=== PATIENT | male | born 1990 | race Caucasian/White ===

== ENCOUNTER 2018-09-12 12:48 | Emergency (ER) | payer MEDICAID, SELFPAY ==
[2018-09-11 13:34] VITALS: BMI 24.2
[2018-09-12 12:49] VITALS: BP 152/107; PULSE 102; RESP 18; TEMP 37.1; O2SAT 98; BMI 25.0
--- NOTE | 2018-09-12 13:00 | RAD_ITS ---
STUDY: X-RAY - LEFT KNEE REASON FOR EXAM: Male, 27 years old. Pain and swelling following a fall. TECHNIQUE: 2 view(s) of the knee. COMPARISON: None. FINDINGS: Normal visualized distal femur. There is a comminuted depressed fracture of the lateral tibial plateau. Normal proximal tibiofibular articulation. Normal medial femorotibial compartment. Normal lateral femorotibial compartment. Normal patellofemoral articulation. Moderate joint effusion with a fat fluid level. RAD/Knee 1 or 2 Views IMPRESSION: Comminuted depressed lateral tibial plateau fracture with joint effusion. Electronically Signed: Michael Solomon, at 13:35 EDT , Service support ,
--- NOTE | 2018-09-12 13:03 | ED.VIS.GEN ---
History of Present Illness Chief Complaint: Lower Extremity Injury Detail of Chief Complaint: Left knee pain status post fall Informant: Patient, Family Onset: Today Quality: Throbbing Location: Left knee Current Severity: Mild Maximum Severity: Moderate Narrative: Patient presents with a fall down approximately 3 stairs. He complains of pain to the left knee only. He denies any other injury. He had limited ability to weight-bear. He was brought in by EMS. - Past Medical History (1) GERD (gastroesophageal reflux disease) Status: Chronic (2) Frequent headaches Status: Acute Past Medical History - Allergies and Home Meds Allergies/Adverse Reactions: Allergies Bleach (Sodium Hypochlorite) Allergy (Intermediate, Verified 09/12/18 12:52) rash Primary Care Physician: Tramaine Mireles MD [Primary Care Provider] - Prior records reviewed: Yes Past Medical History: - - Reviewed Lives: With Family Smoking Status: Current some day smoker Review of Systems All systems negative except as indicated General: Denies: Chills, Fever Eyes: Denies: Visual changes - left, Visual changes - right ENT: Denies: Bilateral ear pain Cardiovascular: Denies: Chest pain, Palpitations Respiratory: Denies: Dyspnea, Cough Gastrointestinal: Denies: Abdominal pain, Nausea, Vomiting Musculoskeletal: Reports: Arthralgias. Denies: Neck pain, Back pain Neurological: Denies: Headache Hematologic: Denies: Easy bruising Allergy: Denies: Uticaria Physical Exam Vital Signs/Narrative: Vital Signs Temp Pulse Resp BP Pulse Ox 09/12/18 12:49 98.7 F 102 H 18 152/107 H 98 General: Well nourished, Well developed ENT: Moist mucous membranes Cardiovascular: Regular rate, Regular rhythm Respiratory: No distress, CTA bilaterally Abdomen: Soft, Nontender Extremities: Tenderness - Diffuse tenderness palpation throughout the anterior left knee with edema. No tenderness over the thigh or hip. No tenderness over the thao or foot. He has strong distal pulses. No erythema or excessive warmth noted. He has decreased range of motion of the left knee secondary to pain and swelling. Skin: Normal color Neurological: Alert, Oriented x3 Psychological: Normal affect Diagnostic/Tx/Re-eval Impressions Knee X-Ray 09/12/18 13:00 IMPRESSION: Comminuted depressed lateral tibial plateau fracture with joint effusion. Electronically Signed: Michael Solomon, at 13:35 EDT , Service support , Lower Extremity CT 09/12/18 14:52 IMPRESSION: Confirmation of extensively comminuted markedly depressed lateral tibial plateau fractures. Note that the exam is very limited because true coronal and sagittal images not provided. Electronically Signed: Julio Cesar Seymour MD at 16:38 EDT , Service support , 09/12/18 13:00 Knee 1 or 2 Views [RAD] Stat 09/12/18 14:52 CT Lower [Extremity Lower without Contra] [CT] Stat Laboratory Results 09/12/18 09/12/18 14:15 14:15 WBC 19.5 H RBC 4.98 Hgb 15.4 Hct 45.3 MCV 91.0 MCH 30.9 MCHC 34.0 RDW Std Deviation 39.2 RDW Coeff of Chio 11.8 Plt Count 198 MPV 10.8 Immature Gran % (Auto) 0.800 Neut % (Auto) 86.0 H Lymph % (Auto) 7.5 L Faulkner % (Auto) 5.2 Eos % (Auto) 0.3 Baso % (Auto) 0.2 Absolute Neuts (auto) 16.8 H Absolute Lymphs (auto) 1.47 Absolute Nucleated RBC 0.00 Nucleated RBC % 0 Sodium 141 Potassium 3.6 Chloride 105 Carbon Dioxide 27.0 Anion Gap 9 BUN 14 Creatinine 0.99 Estim Creat Clear Calc 106.52 Est GFR (MDRD) Af Amer 114 Est GFR (MDRD) Non-Af 94 BUN/Creatinine Ratio 14.1 Glucose 96 Calcium 9.1 - Medical Decision Making Patient was initially given [place] for pain. Following x-rays I spoke with Dr. Montague, on-call for orthopedics. He asked that we obtain a CT of the knee prior to the patient being discharged. He is to be placed in the immobilizer and remain nonweightbearing. He wants to see the patient in the office on Saturday. All this is been relayed to the family. He will be typed out in discharge instructions. Family will call the office for an appointment on Saturday. Disposition: Discharge Impression: Lateral tibial plateau fracture ED Disposition - Plan for ED Patient: Disposition: Home or Assisted Living Diagnosis: Tibial plateau fracture, left Instructions: FRACTURE, Knee Prescriptions: Oxycodone HCl/Acetaminophen [Percocet 5/325] 1 tablet PO Q6H PRN PRN 5 Days #20 tablet PRN Reason: Pain Referrals: Oli Montague DO [STAFF PHYSICIAN] - 3-5 Days Additional Instructions: Call Dr Montague's office for an appointment on Saturday.
[2018-09-12] MEDS: HYDROcodone Bitartrate/Apap 5/325 Tablet PO (13:09)
[2018-09-12] MEDS: 0.9% Normal Saline 1,000 ML 150 ML IV (14:24)
[2018-09-12 14:26] LABS: Absolute Lymphocyte Count 1.47 X10^3/uL (0.83-4.51); Absolute Neutrophil Count 16.8 X10^3/uL (2.0-7.7); Basophil# 0.04 X10^3/uL; Basophil% 0.2 % (0-1); Eosinophil# 0.06 X10^3/uL; Eosinophils% 0.3 % (0-5); Hematocrit 45.3 % (40-54); Hemoglobin 15.4 g/dL (13.0-16.5); Lymphocyte # 1.47 X10^3/ul (4.0); Lymphocyte % 7.5 % (19-41); Mean Corpuscular Hgb 30.9 pg (27.0-32.0); Mean Platelet Vol. 10.8 fl (6.2-12.0); Monocyte# 1.02 X10^3/uL; Monocyte% 5.2 % (0-10); NRBC Flagged by Analyzer 0 % (0-5); Neutrophil # 16.76 X10^3/uL (2.7-7.7); Platelet Count 198 K/mm3 (150-450); RBC Distribution Width CV 11.8 % (11.6-14.6); RBC Distribution Width SD 39.2 fl (35.1-43.9); Red Blood Count 4.98 M/mm3 (4.6-6.2); White Blood Count 19.5 K/mm3 (4.4-11.0)
[2018-09-12 14:38] LABS: Anion Gap 9 (5-15); BUN 14 mg/dL (7-18); BUN/Creat Ratio 14.1 RATIO (10-20); Calcium,Total 9.1 mg/dL (8.5-10.1); Chloride 105 mmol/L (98-107); Creatinine, Serum 0.99 mg/dL (0.70-1.30); EST Glomerular Filtration Rate 94 mL/min (>60); Est Glom Filt Rate - Afr Amer 114 mL/min (>60); Estimated Creatinine Clearance 106.52 ml/min; Glucose 96 mg/dL (74-106); Potassium 3.6 mmol/L (3.5-5.1); Sodium Level 141 mmol/L (136-145)
--- NOTE | 2018-09-12 14:52 | CT_ITS ---
STUDY: CT LEFT KNEE WITHOUT CONTRAST REASON FOR EXAM: Male, 27 years old. Tibial plateau fracture. RADIATION DOSAGE (If Supplied By Facility): CTDIvol = ( 15.35 ) mGy, DLP = ( 407.49 ) mGycm TECHNIQUE: Transaxial CT imaging of the knee was performed. Coronal and sagittal images were reformatted. Individualized dose optimization techniques were used for this CT. COMPARISON: Radiographs of the same day. FINDINGS: Technically limited exam. There are no true sagittal images. Likewise coronal images are not true coronal. Markedly comminuted fractures of the lateral tibial plateau extending through the tibial spines. Markedly depressed fragments. Articular surface is depressed by approximately 1.6 cm. Moderate distraction of several of the fracture fragments. Normal medial tibial plateau, proximal fibula, and visualized femur and patella. Large effusion with a fat fluid level. CT/Extremity Lower without Contra IMPRESSION: Confirmation of extensively comminuted markedly depressed lateral tibial plateau fractures. Note that the exam is very limited because true coronal and sagittal images not provided. Electronically Signed: Julio Cesar Seymour MD at 16:38 EDT , Service support ,
[2018-09-12] MEDS: Ondansetron 4 MG/2 ML Vial IV (15:46)
[2018-09-12] MEDS: Morphine 4 MG/ML Syringe IV (15:47)
[2018-09-12 16:49] VITALS: BP 148/89; PULSE 89; RESP 16; O2SAT 98
[2018-09-12 17:30] VITALS: BP 141/87; PULSE 83; RESP 16; O2SAT 99
== END 2018-09-12 17:15 | disposition home or self-care (01) ==
PROVIDERS: Emergency Provider Emergency Medicine; Family Provider Internal Medicine; PCP Internal Medicine
DX: S82.142A Displaced bicondylar fracture of left tibia, initial encounter for closed fracture (principal); W10.9XXA Fall (on) (from) unspecified stairs and steps, initial encounter; K21.9 Gastro-esophageal reflux disease without esophagitis; F17.200 Nicotine dependence, unspecified, uncomplicated
CPT/HCPCS: 73560; 73700; 80048; 85025; 96361; 96374; 96375; 99285; J7030; A4216; J2405

== ENCOUNTER 2018-09-24 05:12 | Day surgery (SDC) | payer MEDICAID, SELFPAY ==
[2018-09-24 05:48] VITALS: BP 140/89; PULSE 106; RESP 16; TEMP 36.8; O2SAT 100; BMI 23.7
[2018-09-24] MEDS: Cefazolin 2 GM in 0.9% Normal Saline 100 ML IV (07:11)
--- NOTE | 2018-09-24 07:12 | PCM.PN.BLA ---
Progress Note I was able to meet and examined the patient in the preoperative. We discussed potential drawbacks from the surgery including failure of repair and loss of reduction if patient bears weight too early. Expressed the importance of following postoperative instructions to the parents. Swelling is down. We did discuss potential wound complications after surgery with this injury. [facility] Office:
--- NOTE | 2018-09-24 07:15 | RAD_ITS ---
STUDY: X-RAY - LEFT KNEE REASON FOR EXAM: Male, 28 years old. Open reduction internal fixation of the lateral tibial plateau fracture. TECHNIQUE: 2 view(s) of the knee. COMPARISON: Comparison is made with prior examination dated September 12, 2018 FINDINGS: Satisfactory reduction of the lateral tibial plateau fracture. RAD/Knee 1 or 2 Views IMPRESSION: Satisfactory intraoperative reduction with screw and sideplate fixation device of the lateral tibial plateau fracture. Electronically Signed: Michael Solomon, at 11:23 EDT , Service support ,
--- NOTE | 2018-09-24 09:07 | PCM.OPRPT ---
Report of Operation Date of Procedure: 09/24/18 Pre-Operative Diagnosis: Comminuted, displaced right lateral tibial plateau fracture (AO classification B3) Post-Operative Diagnosis: same Surgery/Procedure Performed:: Open reduction internal fixation right tibia post acute care registered nurse: Magdiel Bond Type of Anesthesia:: General/Regional Anesthesiologist: Kei Stallworth - Amy VTE Documentation VTE Present on Admission: No VTE Mechan Device Prophylaxis: SCD's, Thigh High CHITRA Hose VTE Pharm Prophylaxis ordered?: No Reason prophylaxis not ordered:: Treatment Not Indicated
[2018-09-24 09:30] VITALS: BP 139/86; BP 140/89; PULSE 101; RESP 20; TEMP 36.7; O2SAT 97
[2018-09-24 09:45] VITALS: BP 135/107; BP 140/89; PULSE 98; RESP 18; O2SAT 99
[2018-09-24] MEDS: Ketorolac 30 MG/ML Syringe IV (09:50)
[2018-09-24 10:00] VITALS: BP 140/103; BP 140/89; PULSE 95; RESP 18; O2SAT 98
[2018-09-24 10:15] VITALS: BP 140/89; BP 148/99; PULSE 90; RESP 18; TEMP 36.7; O2SAT 97
[2018-09-24] MEDS: Acetaminophen 500 MG Tablet 1000 MG PO (10:40)
[2018-09-24] MEDS: oxyCODONE 5 MG Tablet PO (10:40)
[2018-09-24 11:00] VITALS: BP 140/89; BP 155/99; PULSE 112; RESP 18; TEMP 37.3; O2SAT 99
== END 2018-09-24 11:03 | disposition home or self-care (01) ==
LOC: SDC 05:13 → AC 05:16
PROVIDERS: Family Provider Internal Medicine; PCP Internal Medicine; Referring Provider Orthopaedic Surgery; Visit Provider Orthopaedic Surgery
PROC: (CPT 27827; principal; 2018-09-24 07:00)
DX: S82.122A Displaced fracture of lateral condyle of left tibia, initial encounter for closed fracture (principal); K21.9 Gastro-esophageal reflux disease without esophagitis
CPT/HCPCS: 27827; 73560; 76000; C1713; J7120; J2405

== ENCOUNTER → 2019-01-01 16:12 | Outpatient (CLI) | payer MEDICAID, SELFPAY ==
[2018-12-11 15:00] VITALS: BMI 23.7
[2019-01-01 16:26] LABS: Bacteria 0 SEEN /hpf (None Seen); Red Blood Cells-Urine 0 SEEN /hpf (0-5); Squamous Epithelial Cells - UA 0 SEEN /hpf (0-5); White Blood Cells 0 SEEN /hpf (0-5)
[2019-01-01 18:18] LABS: T4 Free Direct 1.35 ng/dL (0.76-1.46); Thyroid Stim Hormone (TSH) 3.54 uIU/mL (0.358-3.74)
[2019-01-01 18:25] LABS: Color, Urine Yellow (Yellow); Glucose, Dipstick Normal (Normal); Ketone-Dipstick Negative (Negative); Leukocyte Esterase-Dipstick Negative /ul (Negative); Nitrite-Dipstick Negative (Negative); Occult Blood-Urine Negative /ul (Negative); Protein-Dipstick Negative (Negative); Specific Gravity, Urine 1.005 (1.002-1.030); Urine Bilirubin Dipstick Negative (Negative); Urine Clarity Clear (Clear); Urine Urobilinogen Normal (Normal)
[2019-01-01 18:47] LABS: Mucous, Urine 2+ /hpf (<or=2+)
== END ==
PROVIDERS: Family Provider Internal Medicine; PCP Internal Medicine; Referring Provider Internal Medicine; Visit Provider Internal Medicine
DX: I10 Essential (primary) hypertension (principal)
CPT/HCPCS: 36415; 81001; 84439; 84443; 97110

== ENCOUNTER → 2019-01-07 12:38 | Outpatient (CLI) | payer MEDICAID, SELFPAY ==
[2018-12-11 15:00] VITALS: BMI 23.7
--- NOTE | 2019-01-07 12:40 | EKG12_ITS ---
Test Reason : ROUTINE Blood Pressure : / mmHG Vent. Rate : 069 BPM Atrial Rate : 069 BPM P-R Int : 120 ms QRS Dur : 082 ms QT Int : 354 ms P-R-T Axes : 044 061 021 degrees QTc Int : 379 ms Sinus rhythm with marked sinus arrhythmia Otherwise normal ECG Confirmed by SUE VILLALOBOS, YAMIL ([id number]), map editor DENISE DYER ([id number]) on 01/13/2019 1:15:58 PM Referred By: Tramaine Mireles Confirmed By:KIMBERLY ROGERS MD
== END ==
PROVIDERS: Family Provider Internal Medicine; PCP Internal Medicine; Referring Provider Internal Medicine; Visit Provider Internal Medicine
DX: I10 Essential (primary) hypertension (principal)
CPT/HCPCS: 93005

== ENCOUNTER 2019-01-26 15:00 | Outpatient (RCR) | payer MEDICAID, SELFPAY ==
--- NOTE | 2018-10-22 13:35 | HP.PTEVAL_ITS ---
Patient's Visit Information DAVY SINGLETON is a 28 year old M referred to Physical Therapy by Oli Montague DO with a diagnosis of L tibial fx with ORIF. Date of Evaluation: 10/21/18 Physical Therapist: Alec Jackson DPT - Visit Plan Frequency: 2x /Week Duration: 4-6 Weeks Plan: Start with ROM exercises focus on end ranges, longer holds. Add in quad/HS activation. Maintain NWBing until cleared by physiican. - Subjective Findings: Pt. is here today for his initial evaluation with diagnosis of L tibial fx. Pt. reports falling goig up his stairs ~4 weeks ago and had subsequent surgery. Pt. had 2 plates and 7 screws implanted. Pt. is currently NWBing on his LLE and is walking with a FWW. Pt. reports having some pain, but mostly with trying to bend and straigthen his leg. Pt. reports no pain while sle eping. He is using FWW for in home mobility and WC from longer distances. Pt. is taking oxycondine as needed for pain. Pt. is to see physician next week and is hopeful to add in WBing. Pt. has been wearing his TROM brace as indicated. Pt. is hopeful to get back to all recreational and household work activities without limitations. - Pain L knee Pain Intensity (Out of 10): 1 Pain Intensity Range: 0, 4 - Objective POSTURE: Pt. has general flexed posture, keeps his L knee in ~60deg of flexion. Pt. maintains proper WBing in stance. PALPATION: Pt. has well healing incisions, no signs of infection. Pt. has tenderness along lateral aspect fo proximal tibia. NEURO: Pt. has normal sensation throughout bilateral LEs. Pt. has normal DTR bilaterally. ROM: L knee 0-8-89deg. Pt. tolerated knee flexion greater in sitting compared to supine. Pt. has tight HS bilaterally. MMT: RLE: 5/5 throughout. LLE- ankle 5/5 throughout; knee- ext 3+/5, flexion 3+/5; hip- flexion 4/5, abd 4/5, ext 4/5. GAIT: Pt. maintains proper WBing on LLE with gait with FWW. Pt. was able to ambualt 50ft. prior to requiring rest period. STAIRS: step to pattern with mod A. - Goals Goal 1:: Pt. to be I with HEP. Goal Time Frame: 4-6 Weeks Goal 2:: Pt. to have increased L knee ROM to 0-0-130deg without increase in symptoms. Goal Time Frame: 4-6 Weeks Goal 3:: Pt. to sleep without increase in symptoms. Goal Time Frame: 4-6 Weeks Goal 4:: Pt. to ambulate with FWW maintaining proper NWBing. Goal Time Frame: 4-6 Weeks Goal 5:: Pt. to have increased LLE strength by 1/2 grade of all effected musculature. Goal Time Frame: 4-6 Weeks - Rehabilitation Potential Physical Therapy Diagnosis: Pt. has signs and symptoms consistent with L tibial fx with subsequent ORIF. Pt. has subsequent hypomboility, weakness and di fficulty with gait. Rehabilitation Potential: Good - Anticipated Interventions Patient/Client Instruction: Educate patient on: Condition, Plan of Care, Risk Factors, Benefits of Fitness Program For the Purpose of:: To improve decision making, To facilitate caregiver knowledge, To improve self management, To prevent re-injury, To improve ability to perform tasks related to life management, To improve tolerance to ADL's Therapeutic Exercise to Include: Strength training, Power training, Endurance training, Balance training, Body mechanics, Postural training, Flexibilty training, Gait and locomotor training, Passive ROM, Active ROM For the Purpose of:: To decrease pain, To decrease swelling/inflammation, To increase ROM, To improve nutrient delivery to tissue, To increase oxygenation perfusion, To improve muscle performance and motor function, To improve ability of physical actions for home/community/work/leisure, To improve gait and locomotor functions, To improve health of tissue, To decrease soft tissue restriction IF ES: Yes Cryotherapy (ice pack, ice massage): Yes Vasopneumatic device: Yes For the Purpose of:: To decrease pain, To decrease swelling/inflammation Thank you for the opportunity to evaluate your patient. For Medicare and Medicare HMO plans, please review the plan of care and approve it. It will need to be FAXED BACK to us at [phone] for Medicare purposes. For Medicare only, by signing this I certify the plan of care. Please let me know if there are questions or concerns regarding this plan of care. Physician Signature: Date:
--- NOTE | 2018-12-18 16:45 | HP.PTREVAL_ITS ---
Oli Montague, DO, It has been my pleasure to treat DAVY SINGLETON over the last 16 visits for L tibial fx with ORIF. Please see the progress note below for an update on the physical therapy plan of care! Subjective: No pain this date Objective/Function: L knee pain 0/10 currently, increases to 4/10 at worst. L knee ROM 0-110. L knee MMT 4-/5 throughout. Pt is able to ambulate greater than 1000' without AD, mild limp. negotiated stairs without difficulty. Pt is progressing well towards Rx goals. Plan Plan: Cont to progress LE strength and stability. 1 x per week for 5 more weeks. Transition to HEP Goals Goal 1:: Pt. to be I with HEP. Goal Time Frame: 4-6 Weeks Goal Progress: Progressing Goal 2:: Pt. to have increased L knee ROM to 0-0-130deg without increase in symptoms. Goal Time Frame: 4-6 Weeks Goal Progress: Progressing Goal 3:: Pt. to sleep without increase in symptoms. Goal Time Frame: 4-6 Weeks Goal Progress: Progressing Goal 4:: Pt. to ambulate with FWW maintaining proper NWBing. Goal Time Frame: 4-6 Weeks Goal Progress: Goal Met Goal 5:: Pt. to have increased LLE strength by 1/2 grade of all effected m usculature. Goal Progress: Progressing Goal Time Frame: 4-6 Weeks Anticipated Interventions Patient/Client Instruction: Educate patient on: Condition, Plan of Care, Risk Factors, Benefits of Fitness Program For the Purpose of:: To improve decision making, To facilitate caregiver know ledge, To improve self management, To prevent re-injury, To improve ability to perform tasks related to life management, To improve tolerance to ADL's Therapeutic Exercise to Include: Strength training, Power training, Endurance training, Balance training, Body mechanics, Postural training, Flexibilty training, Gait and locomotor training, Passive ROM, Active ROM For the Purpose of:: To decrease pain, To decrease swelling/inflammation, To increase ROM, To improve nutrient delivery to tissue, To increase oxygenation perfusion, To improve muscle performance and motor function, To improve ability of physical actions for home/community/work/leisure, To improve gait and locomotor functions, To improve health of tissue, To decrease soft tissue re striction IF ES: Yes Cryotherapy (ice pack, ice massage): Yes Vasopneumatic device: Yes For the Purpose of:: To decrease pain, To decrease swelling/inflammation Please do not hesitate to contact me at [phone] by phone or if you have questions or concerns regarding this new plan of care! Sincerely, Santiago Rodríguez, PT, ATC
--- NOTE | 2019-04-01 07:49 | HP.PTDCSUM_ITS ---
HP - PT D/C Summary It has been my pleasure to treat DAVY SINGLETON under orders from Oli Montague DO, for the diagnosis of L tibial fx with ORIF for a total of 21 visit(s). Discharge Date: Please see the following information for a summary of their discharge status. - Subjective Subjective: Pt reports he is ready for discharge. - Pain L knee Pain Intensity (Out of 10): 0 - Overall Improvement % Improvement: 70 - Objective Objective/Function: L knee pain 0/10. L knee ROM: 0-120 degrees. MMT: 5/5 throughout. I with HEP - Goals Goal 1:: Pt. to be I with HEP. Goal Progress: Goal Met Goal 2:: Pt. to have increased L knee ROM to 0-0-130deg without increase in symp toms. Goal Progress: Progressing Goal 3:: Pt. to sleep without increase in symptoms. Goal Progress: Goal Met Goal 4:: Pt. to ambulate with FWW maintaining proper NWBing. Goal Progress: Goal Met Goal 5:: Pt. to have increased LLE strength by 1/2 grade of all effected musculature. Goal Progress: Goal Met - Plan Plan: Discharge - D/C Information If there are questions or concerns regarding this patient's physical therapy, please feel free to call me at [phone]. Thank you for the referral of this patient. Sincerely, Santiago Rodríguez, PT, ATC
== END 2019-01-26 19:00 | disposition home or self-care (01) ==
LOC: PT 15:00
PROVIDERS: Family Provider Internal Medicine; PCP Internal Medicine; Referring Provider Orthopaedic Surgery; Visit Provider Orthopaedic Surgery
DX: S82.122D Displaced fracture of lateral condyle of left tibia, subsequent encounter for closed fracture with routine healing (principal)
CPT/HCPCS: 97110; 97140; 97161; 97530

== ENCOUNTER 2019-04-24 14:30 | Outpatient (RCR) | payer MEDICAID, SELFPAY ==
[2019-03-11 14:32] VITALS: BMI 22.4
--- NOTE | 2019-04-07 16:15 | HP.PTEVAL ---
Patient's Visit Information DAVY SINGLETON is a 28 year old M referred to Physical Therapy by OSMAN PowersC with a diagnosis of L knee pain. Date of Evaluation: 04/07/19 Physical Therapist: Santiago Rodríguez PT, ATC - Visit Plan Frequency: 2x /Week Duration: 4-6 Weeks Plan: L LE stretching and strengthening, balance and proprio, core strengthening, bike, and HEP - Subjective Findings: Pt reports he fell going up stairs in August of 2018. Pt reports this resulted in a Fracture to his L knee. Pt reports he had pT for this, but has not fully recovered at this time. Pt is not in pain at this time. Pt reports his doctor wants him to continiue with pT at this time for strengthening purposes. Pt reports he is not able to run at this time secondary to L knee pain. No tingling or numbness in L LE. No sleep difficulty secondary to pain. Pt reports he is able to negotiate stairs at this time, but notes he gets really tired areally fast and is limited to how many steps he can negotiate. - Objective Neuro: B LE sensation is WNL to light touch. B patellar reflex= 2/3. Palpation: Mild crepitus with AROM. No obvious deformity or pain at this time. MMT: B LE's grossly 4/5 throughout. ROM: R knee 0-120, L knee 0-115. Gait: Pt is able to ambulate approximately 1000' until feeling fatigued that date - Goals Goal 1:: Increase L LE strength x 1 grade to aid with stair negotiation Goal Time Frame: 4-6 Weeks Goal 2:: Increase L knee ROM x 5 degrees to aid with IADLs' Goal Time Frame: 4-6 Weeks Goal 3:: I with HEP Goal Time Frame: 4-6 Weeks - Rehabilitation Potential Physical Therapy Diagnosis: Pt has L knee pain and weakness secondary to debilitation from a L knee fracture Rehabilitation Potential: Good - Anticipated Interventions Patient/Client Instruction: Educate patient on: Condition, Plan of Care For the Purpose of:: To improve self management Therapeutic Exercise to Include: Strength training, Endurance training, Balance training, Gait and locomotor training, Active ROM, Dynamic Lumbar Stabilization For the Purpose of:: To increase ROM, To improve muscle performance and motor function Cryotherapy (ice pack, ice massage): Yes For the Purpose of:: To decrease pain Thank you for the opportunity to evaluate your patient. For Medicare and Medicare HMO plans, please review the plan of care and approve it. It will need to be FAXED BACK to us at [phone] for Medicare purposes. For Medicare only, by signing this I certify the plan of care. Please let me know if there are questions or concerns regarding this plan of care. Physician Signature: Date:
--- NOTE | 2019-09-28 16:40 | HP.PT.NRP ---
DAVY SINGLETON was seen in my office for initial evaluation on 04/07/19. The following Plan of Care was established for this patient: Initial Frequency: 2x /Week Initial Duration: 4-6 Weeks Patient/Client Instruction: Educate patient on: Condition, Plan of Care For the Purpose of:: To improve self management Therapeutic Exercise to Include: Strength training, Endurance training, Balance training, Gait and locomotor training, Active ROM, Dynamic Lumbar Stabilization For the Purpose of:: To increase ROM, To improve muscle performance and motor function Cryotherapy (ice pack, ice massage): Yes For the Purpose of:: To decrease pain This patient was last seen in our office . Pertinent comments regarding their Physical therapy will appear below: Pt was last treated in March 2019. Pt has not returned since that date and is discontinued at this time. At this point I will be discontinuing this patient from physical therapy. I would be happy to see this patient again in the future if found appropriate by the physician. Thank you! Santiago Rodríguez, PT, ATC
== END 2019-04-24 19:00 | disposition home or self-care (01) ==
LOC: PT 14:30
PROVIDERS: PCP Internal Medicine; Referring Provider Nurse Practitioner Family; Visit Provider Nurse Practitioner Family
DX: M25.562 Pain in left knee (principal); G89.29 Other chronic pain
CPT/HCPCS: 97110; 97161

== ENCOUNTER → 2019-07-27 10:55 | Outpatient (CLI) | payer MEDICAID, SELFPAY ==
[2019-07-27 10:52] VITALS: BMI 22.4
--- NOTE | 2019-07-27 10:56 | RAD_ITS ---
STUDY: X-RAY - LEFT KNEE REASON FOR EXAM: Male, 28 years old. PAIN TECHNIQUE: 4 view(s) of the knee. COMPARISON: Previous study of 09/24/2018 FINDINGS: Normal visualized distal femur. There is demonstrated evidence of previous internal fixation with plate and multiple screws of lateral tibial plateau fracture Normal proximal tibiofibular articulation. There is demonstrated interval healing of a minimally depressed lateral tibial plateau fracture. Normal medial femorotibial compartment normal patellofemoral compartment. The soft tissue structures are unremarkable. RAD/Knee 4 or More Views IMPRESSION: Status post previous internal fixation with plate and multiple screws of the lateral tibial plateau fracture. There is demonstrated interval healing of a minimally depressed lateral tibial plateau fracture. There is no evidence of acute fracture, dislocation, or suprapatellar effusion. Electronically Signed: Dallas Rboerts MD at 17:02 EDT , Service support ,
== END ==
PROVIDERS: PCP Internal Medicine; Referring Provider Orthopaedic Surgery; Visit Provider Orthopaedic Surgery
DX: M25.562 Pain in left knee (principal)
CPT/HCPCS: 73564

== ENCOUNTER 2019-08-22 02:22 | Emergency (ER) | payer MEDICAID, SELFPAY ==
[2019-07-27 10:52] VITALS: BMI 22.4
[2019-08-22 02:24] VITALS: BP 147/98; PULSE 105; RESP 18; TEMP 37.5; O2SAT 99; BMI 23.5
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
[2019-08-22] MEDS: Acetaminophen 325 MG Tablet 650 MG PO (02:43)
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
[2019-08-22 04:41] VITALS: BP 136/72; PULSE 90; RESP 16; O2SAT 95
== END 2019-08-22 04:42 | disposition home or self-care (01) ==
PROVIDERS: Emergency Provider Emergency Medicine; PCP Internal Medicine
DX: S82.61XA Displaced fracture of lateral malleolus of right fibula, initial encounter for closed fracture (principal); S00.83XA Contusion of other part of head, initial encounter; Y04.0XXA Assault by unarmed brawl or fight, initial encounter; W01.0XXA Fall on same level from slipping, tripping and stumbling without subsequent striking against object, initial encounter; Y93.9 Activity, unspecified; Y92.9 Unspecified place or not applicable; K21.9 Gastro-esophageal reflux disease without esophagitis; I10 Essential (primary) hypertension; Z79.899 Other long term (current) drug therapy
CPT/HCPCS: 70450; 73610; 99285

== ENCOUNTER → 2019-10-14 14:42 | Outpatient (CLI) | payer MEDICAID, SELFPAY ==
[2019-10-14 14:09] VITALS: BMI 23.2
[2019-10-14 17:16] LABS: Absolute Lymphocyte Count 2.89 X10^3/uL (0.83-4.51); Absolute Neutrophil Count 7.4 X10^3/uL (2.0-7.7); Basophil# 0.07 X10^3/uL; Basophil% 0.6 % (0-1); Eosinophil# 0.24 X10^3/uL; Hematocrit 47.6 % (40-54); Hemoglobin 15.8 g/dL (13.0-16.5); Lymphocyte # 2.89 X10^3/ul (4.0); Lymphocyte % 24.5 % (19-41); Mean Corp Hgb Conc 33.2 g/dL (32-36); Mean Corpuscular Hgb 30.8 pg (27.0-32.0); Mean Corpuscular Volume 92.8 fL (80-94); Mean Platelet Vol. 11.1 fl (6.2-12.0); Monocyte# 1.18 X10^3/uL; NRBC Flagged by Analyzer 0 % (0-5); Neutrophil # 7.37 X10^3/uL (2.7-7.7); Neutrophil % 62.3 % (47-70); Platelet Count 248 K/mm3 (150-450); RBC Distribution Width SD 41.3 fl (35.1-43.9); Red Blood Count 5.13 M/mm3 (4.6-6.2); White Blood Count 11.8 K/mm3 (4.4-11.0)
[2019-10-14 17:26] LABS: ALB/GLOB Ratio 1.2 RATIO (0.9-2.4); AST(SGOT) 23 U/L (15-37); Alanine Aminotransfer ALT/SGPT 66 U/L (16-61); Albumin, Serum 4.5 g/dL (3.2-5.0); Alkaline Phosphatase 84 U/L (45-117); Anion Gap 6 (5-15); BUN 16 mg/dL (7-18); BUN/Creat Ratio 16.7 RATIO (10-20); Calcium,Total 8.7 mg/dL (8.5-10.1); Chloride 105 mmol/L (98-107); Cholesterol 144 mg/dL (200); Creatinine, Serum 0.96 mg/dL (0.70-1.30); EST Glomerular Filtration Rate 97 mL/min (>60); Est Glom Filt Rate - Afr Amer 118 mL/min (>60); Globulin 3.7 g/dL (2.2-4.2); Glucose 86 mg/dL (74-106); High Density Lipoprotein 32 mg/dL; Potassium 3.5 mmol/L (3.5-5.1); Protein, Total 8.2 g/dL (6.4-8.2); Sodium Level 138 mmol/L (136-145); Triglycerides 337 mg/dL; Very Low Density Lipoprotein 67 mg/dL (5-40)
== END ==
PROVIDERS: PCP Internal Medicine; Referring Provider Internal Medicine; Visit Provider Internal Medicine
DX: I10 Essential (primary) hypertension (principal)
CPT/HCPCS: 36415; 80053; 80061; 85025

== ENCOUNTER → 2020-04-25 12:10 | Outpatient (CLI) | payer MEDICAID, SELFPAY ==
[2020-04-25 11:17] VITALS: BMI 26.3
[2020-04-25 15:23] LABS: ALB/GLOB Ratio 1.3 RATIO (0.9-2.4); AST(SGOT) 25 U/L (15-37); Alanine Aminotransfer ALT/SGPT 59 U/L (16-61); Albumin, Serum 4.5 g/dL (3.2-5.0); Alkaline Phosphatase 90 U/L (45-117); Anion Gap 6 (5-15); BUN 11 mg/dL (7-18); BUN/Creat Ratio 10.3 RATIO (10-20); Calcium,Total 9.1 mg/dL (8.5-10.1); Chloride 106 mmol/L (98-107); Cholesterol 139 mg/dL (200); Creatinine, Serum 1.07 mg/dL (0.70-1.30); EST Glomerular Filtration Rate 85 mL/min (>60); Est Glom Filt Rate - Afr Amer 103 mL/min (>60); Globulin 3.5 g/dL (2.2-4.2); Glucose 94 mg/dL (74-106); High Density Lipoprotein 33 mg/dL; Potassium 3.9 mmol/L (3.5-5.1); Sodium Level 140 mmol/L (136-145); Triglycerides 129 mg/dL; Very Low Density Lipoprotein 26 mg/dL (5-40)
== END ==
PROVIDERS: PCP Internal Medicine; Visit Provider Internal Medicine
DX: I10 Essential (primary) hypertension (principal); K21.9 Gastro-esophageal reflux disease without esophagitis
CPT/HCPCS: 36415; 80053; 80061

== ENCOUNTER → 2020-05-13 15:59 | Outpatient (CLI) | payer MEDICAID, SELFPAY ==
--- NOTE | 2020-05-13 16:03 | EKG12_ITS ---
Test Reason : PREOP Blood Pressure : / mmHG Vent. Rate : 075 BPM Atrial Rate : 075 BPM P-R Int : 116 ms QRS Dur : 086 ms QT Int : 364 ms P-R-T Axes : 051 033 026 degrees QTc Int : 406 ms Normal sinus rhythm with sinus arrhythmia Normal ECG Confirmed by KIRSTIN VILLALOBOS, BOBO ([id number]), editor managing newspaper [employer] ([id number]) on 05/16/2020 10:22:57 AM Referred By: Tramaine Mireles Confirmed By:BOBO FULTON MD
== END ==
PROVIDERS: PCP Internal Medicine; Referring Provider Internal Medicine; Visit Provider Internal Medicine
DX: I10 Essential (primary) hypertension (principal)
CPT/HCPCS: 93005

== ENCOUNTER 2020-08-23 15:30 | Outpatient (RCR) | payer MEDICAID, SELFPAY ==
[2020-06-10 13:06] VITALS: BMI 26.4
--- NOTE | 2020-07-07 14:48 | HP.PTEVAL ---
Patient's Visit Information DAVY SINGLETON is a 29 year old M referred to Physical Therapy by LIZA Powers with a diagnosis of Chronic knee pain. Date of Evaluation: 07/07/20 Physical Therapist: ROGER Bonner - Visit Plan Frequency: 2x /Week Duration: 4 Weeks Plan: 2X/ week 4 weeks for L knee and hip and core strength along with R ankle strengthening, functional gait and stairs with HEP. HEP given at eval: Ry, LORRAINE, QS - Subjective Pt fell and broke it on the stairs and fell backwards the day before his birthday about a year ago. They had to do x-rays and had surgery with Dr Montague and they put a plate in his knee and he came here for PT. When he left PT last time he had no pain. This time the pain started when the weather got cold. His L knee hurts when he over does it. It does it hurt on stairs. It hurts when he walks a long distances. He hurts somedays and will have to take Tylenol for it. It hurts sometimes when he gets out of the chair and uses his arms cause it will hurt. He has stairs at home and he uses a railing and he goes up recip and he is pretty fast on stairs and he is told to slow down. His pain depends a lot on the weather. His L knee gets stiff at times. Pt reports that he bruised his L ankle and he has arthritis on it now and he feels that it is weak and somedays he can walk on it and somedays he has to take it slow cause he is hurting. - Pain L knee pain Pain Intensity (Out of 10): 0 Pain Intensity Range: 6 - Objective Gait: walks with B LE ER. Stairs: Up and down stairs with 1 handrail recip with obvious signs of poor eccentric control on the L descending the steps. L knee AROM: -1 degree from full extension to 115 degrees L knee flexion. R knee AROM: -2 degrees from full extension to 120 degrees knee fleixon. Patellar DTR's: R 3+/4 and L 1+/3. LE MMT: B hip flex 3+/5, R knee ext 4-/5 and L 3+/4, B knee flex 4-/5, R hip abd 4-/5 and L 3-/5, Bridge 1/2 normal ROM bridge, N hip ER 3+/5 and B hip IR 4-/5. B ankle INV/EV 4-/5 In supine 4-/5 B DF/PF. Pt reports that he can not raise his toes and heels in standing due to having surgery on B feet. Palpation of the R knee: No pain along medial or lateral joint line or posterior HS area. Tight HS and gastroc complex B - Goals Goal 1:: I HEP Goal Time Frame: 6-8 Weeks Goal 2:: Increase L knee strength (including hip by 1/2 muscle grade) (at time of the eval: LE MMT: B hip flex 3+/5, R knee ext 4-/5 and L 3+/4, B knee flex 4-/5, R hip abd 4-/5 and L 3-/5, Bridge 1/2 normal ROM bridge, N hip ER 3+/5 and B hip IR 4-/5). Goal Time Frame: 6-8 Weeks Goal 3:: Increase R ankle strength by 1/2 muscle grade (at time of eval: ankle INV/EV 4-/5 In supine 4-/5 B DF/PF. Pt reports that he can not raise his toes and heels in standing due to having surgery on B feet). Goal Time Frame: 6-8 Weeks Goal 4:: Decrease L knee and R ankle pain by 50% with ADL's and weather changes per subjective Goal Time Frame: 6-8 Weeks - Rehabilitation Potential Rehabilitation Potential: Good - Anticipated Interventions Patient/Client Instruction: Educate patient on: Condition, Plan of Care For the Purpose of:: To decrease pain, To increase ROM, To improve nutrient delivery to tissue, To improve muscle performance and motor function, To increase tolerance to activity/condition/position, To improve ability of physical actions for home/community/work/leisure, To improve gait and locomotor functions, To improve health of tissue, To increase flexibility/ROM, To improve endurance, To improve balance, To improve safety with gait Therapeutic Exercise to Include: Strength training, Postural training, Flexibilty training, Gait and locomotor training, Passive ROM, Active ROM, Dynamic Lumbar Stabilization For the Purpose of:: To decrease pain, To increase ROM, To improve nutrient delivery to tissue, To improve muscle performance and motor function, To improve ability to perform ADL's, To improve gait and locomotor functions, To improve health of tissue, To decrease soft tissue restriction, To increase flexibility/ROM, To improve balance, To improve safety with gait Functional Training to Include: Gait training For the Purpose of:: To improve gait and locomotor functions, To improve safety with gait Manual Therapy Techniques to Include: Passive ROM For the Purpose of:: To increase ROM, To increase flexibility/ROM Thank you for the opportunity to evaluate your patient. For Medicare and Medicare HMO plans, please review the plan of care and approve it. It will need to be FAXED BACK to us at [phone] for Medicare purposes. For Medicare only, by signing this I certify the plan of care. Please let me know if there are questions or concerns regarding this plan of care. Physician Signature: Date:
--- NOTE | 2020-08-23 16:03 | HP.PTREVAL_ITS ---
Ar Grace, BARREL RIFLER HOOK-C, It has been my pleasure to treat DAVY SINGLETON over the last 10 visits for Chronic knee pain. Please see the progress note below for an update on the physical therapy plan of care! Subjective: L knee pain is 7/10 still. Pt reports he is getting better, but still has significant pain Objective/Function: L knee pain 7/10 at worst. L knee is 4/5 throughout. Pt is not able to lift B heels and toes off the ground at once. Pt is progressing well but would benefit from further PT to increase L LE strength Plan Plan: 2x/week for 4 weeks with combo of land and aquatic therapy- L knee/hip and core strength along with R ankle strengthening, functional gait and stairs with HEP Goals Goal 1:: I HEP Goal Time Frame: 6-8 Weeks Goal Progress: Progressing Goal 2:: Increase L knee strength (including hip by 1/2 muscle grade) (at time of the eval: LE MMT: B hip flex 3+/5, R knee ext 4-/5 and L 3+/4, B knee flex 4-/5, R hip abd 4-/5 and L 3-/5, Bridge 1/2 normal ROM bridge, N hip ER 3+/5 and B hip IR 4-/5). Goal Time Frame: 6-8 Weeks Goal Progress: Progressing Goal 3:: Increase R ankle strength by 1/2 muscle grade (at time of eval: ankle INV/EV 4-/5 In supine 4-/5 B DF/PF. Pt reports that he can not raise his toes and heels in standing due to having surgery on B feet). Goal Time Frame: 6-8 Weeks Goal Progress: Progressing Goal 4:: Decrease L knee and R ankle pain by 50% with ADL's and weather changes per subjective Goal Time Frame: 6-8 Weeks Goal Progress: Progressing Anticipated Interventions Patient/Client Instruction: Educate patient on: Condition, Plan of Care For the Purpose of:: To decrease pain, To increase ROM, To improve nutrient delivery to tissue, To improve muscle performance and motor function, To increase tolerance to activity/condition/position, To improve ability of physical actions for home/community/work/leisure, To improve gait and locomotor functions, To improve health of tissue, To increase flexibility/ROM, To improve endurance, To improve balance, To improve safety with gait Therapeutic Exercise to Include: Strength training, Postural training, Flexibilty training, Gait and locomotor training, Passive ROM, Active ROM, Dynamic Lumbar Stabilization For the Purpose of:: To decrease pain, To increase ROM, To improve nutrient delivery to tissue, To improve muscle performance and motor function, To improve ability to perform ADL's, To improve gait and locomotor functions, To improve health of tissue, To decrease soft tissue restriction, To increase flexibility/ROM, To improve balance, To improve safety with gait Functional Training to Include: Gait training For the Purpose of:: To improve gait and locomotor functions, To improve safety with gait Manual Therapy Techniques to Include: Passive ROM For the Purpose of:: To increase ROM, To increase flexibility/ROM Please do not hesitate to contact me at [phone] by phone or if you have questions or concerns regarding this new plan of care! Sincerely, Santiago Rodríguez, PT, ATC
--- NOTE | 2020-09-14 18:06 | HP.PTDCSUM ---
It has been my pleasure to treat DAVY SINGLETON referred by LIZA Powers, with the diagnosis of Chronic knee pain for a total of 10 visit(s). Discharge Date: Please see the following information for a summary of their discharge status. Subjective: L knee pain is 7/10 still. Pt reports he is getting better, but still has significant pain L knee pain Pain Intensity (Out of 10): 7 % Improvement: 45 Objective/Function: L knee pain 7/10 at worst. L knee is 4/5 throughout. Pt is not able to lift B heels and toes off the ground at once. Pt is progressing well but would benefit from further PT to increase L LE strength Goal 1:: I HEP Goal Progress: Progressing Goal 2:: Increase L knee strength (including hip by 1/2 muscle grade) (at time of the eval: LE MMT: B hip flex 3+/5, R knee ext 4-/5 and L 3+/4, B knee flex 4-/5, R hip abd 4-/5 and L 3-/5, Bridge 1/2 normal ROM bridge, N hip ER 3+/5 and B hip IR 4-/5). Goal Progress: Progressing Goal 3:: Increase R ankle strength by 1/2 muscle grade (at time of eval: ankle INV/EV 4-/5 In supine 4-/5 B DF/PF. Pt reports that he can not raise his toes and heels in standing due to having surgery on B feet). Goal Progress: Progressing Goal 4:: Decrease L knee and R ankle pain by 50% with ADL's and weather changes per subjective Goal Progress: Progressing Plan: 2x/week for 4 weeks with combo of land and aquatic therapy- L knee/hip and core strength along with R ankle strengthening, functional gait and stairs with HEP If there are questions or concerns regarding this patient's physical therapy, please feel free to call me at [phone]. Thank you for the referral of this patient. Sincerely, Melissa Lino, MPT
== END 2020-08-23 19:00 | disposition home or self-care (01) ==
LOC: PT 15:30
PROVIDERS: PCP Internal Medicine; Referring Provider Nurse Practitioner Family; Visit Provider Nurse Practitioner Family
DX: M25.562 Pain in left knee (principal); G89.29 Other chronic pain
CPT/HCPCS: 97110; 97161; 97164

== ENCOUNTER 2021-09-05 16:23 | Outpatient (RCR) | payer MEDICAID, SELFPAY | END 2021-09-05 16:24 | disposition home or self-care (01) | LOC: PT 16:23 | PROVIDERS: PCP Family Medicine; Referring Provider Family Medicine; Visit Provider Family Medicine | DX: M25.562 Pain in left knee (principal) ==

== ENCOUNTER 2022-01-03 18:00 | Outpatient (RCR) | payer MEDICAID, SELFPAY ==
--- NOTE | 2021-06-26 12:22 | HP.PTEVAL ---
Patient's Visit Information DAVY SINGLETON is a 30 year old M referred to Physical Therapy by Dr. Ar Zamudio DO with a diagnosis of L knee pain. Date of Evaluation: 06/26/21 Physical Therapist: Santiago Rodríguez, PT, ATC - Visit Plan Frequency: 2-3x /Week Duration: 4-6 Weeks Plan: L LE stretching and strengthening, core stab ex's, balance and proprio, nustep, and HEP - Subjective Pt reports he has had L knee pain for several months. Pt reports he tends to feel the pain more when its cold outside. Pt reports he had surgery on his L knee a couple years ago secondary to breaking his leg. Pt reports he had physical therapy from that and recovered well, but the pain has returned for unknown reasons. Pt reports the pain is mostly located near his patella region. Pt denies tingling or numbness in L LE at this time. Pt reports occasional sleep difficulty secondary to pain. Pt reports he has stairs at home and must negotiate them one step at a time. Pt reports his major goal is to get rid of his pain so he can enjoy life without feeling so limited. Pt reports L knee pain is currently 4/10, but notes it increases to 10/10 at worst. - Pain L knee pain Pain Intensity (Out of 10): 4 Pain Intensity Range: 10 - Objective Neuro: B LE sensation is WNL to light touch. B patellar reflex= 1/3. Palpation: Significant crepitus with AROM of patello-femoral joint. No obvious deformity at this time. No pain with palpation. ROM: R knee 0-125, L knee 0-120 degrees. MMT: R knee flex= 16.5, ext= 27.5; L knee flex= 8, ext= 10 #F. Special tests: pos 90/90 test with 45 degree lag, pos McConnels test - Balance/Special Test Scores Lower Extremity Functional Score: 38 - Goals Goal 1:: Decrease L knee pain x 50% to aid with sleep Goal Time Frame: 4-6 Weeks Goal 2:: Increase L knee flex and extension strength x 5-10 #F to aid with stair negotiation Goal Time Frame: 4-6 Weeks Goal 3:: Increase L knee flexion ROM x 5 degrees to aid with IADL's Goal Time Frame: 4-6 Weeks Goal 4:: I with HEP Goal Time Frame: 4-6 Weeks - Rehabilitation Potential Physical Therapy Diagnosis: Pt has L knee pain, weakness, and limited ROM secondary to patello-femoral syndrome Rehabilitation Potential: Good - Anticipated Interventions Patient/Client Instruction: Educate patient on: Condition, Plan of Care For the Purpose of:: To improve self management Therapeutic Exercise to Include: Strength training, Balance training, Flexibilty training, Dynamic Lumbar Stabilization For the Purpose of:: To decrease pain, To increase ROM, To improve muscle performance and motor function Cryotherapy (ice pack, ice massage): Yes For the Purpose of:: To decrease pain Thank you for the opportunity to evaluate your patient. For Medicare and Medicare HMO plans, please review the plan of care and approve it. It will need to be FAXED BACK to us at [phone] for Medicare purposes. For Medicare only, by signing this I certify the plan of care. Please let me know if there are questions or concerns regarding this plan of care. Physician Signature: Date:
--- NOTE | 2021-09-12 16:19 | HP.PTREVAL ---
Dr. Ar Zamudio, DO, It has been my pleasure to treat DAVY SINGLETON over the last 10 visits for L knee pain. Please see the progress note below for an update on the physical therapy plan of care! Subjective: Pt reports no pain today, he just feels weak at this time Objective/Function: L knee pain 0/10, increases to 10/10 at worst. L knee MMT: flex= 11, ext= 20 #F. ROM: 0-120. Gait: Pt is able to ambulate for greater than 1000 feet without difficulty Plan Plan: Cont to treat L LE and core stab ex's at this time. Balance/Gait/Functional tests - Balance/Special Test Scores Lower Extremity Functional Score: 38 Goals Goal 1:: Decrease L knee pain x 50% to aid with sleep Goal Time Frame: 4-6 Weeks Goal Progress: Progressing Goal 2:: Increase L knee flex and extension strength x 5-10 #F to aid with stair negotiation Goal Time Frame: 4-6 Weeks Goal Progress: Progressing Goal 3:: Increase L knee flexion ROM x 5 degrees to aid with IADL's Goal Time Frame: 4-6 Weeks Goal Progress: Progressing Goal 4:: I with HEP Goal Time Frame: 4-6 Weeks Goal Progress: Progressing Anticipated Interventions Patient/Client Instruction: Educate patient on: Condition, Plan of Care For the Purpose of:: To improve self management Therapeutic Exercise to Include: Strength training, Balance training, Flexibilty training, Dynamic Lumbar Stabilization For the Purpose of:: To decrease pain, To increase ROM, To improve muscle performance and motor function Cryotherapy (ice pack, ice massage): Yes For the Purpose of:: To decrease pain Please do not hesitate to contact me at [phone] by phone or if you have questions or concerns regarding this new plan of care! Sincerely, Santiago Rodríguez, PT, ATC
== END 2022-01-03 19:00 | disposition home or self-care (01) ==
LOC: PT 18:00
PROVIDERS: PCP Family Medicine; Referring Provider Family Medicine; Visit Provider Family Medicine
DX: M25.562 Pain in left knee (principal)
CPT/HCPCS: 97110; 97161; 97530

== ENCOUNTER 2022-02-15 16:00 | Outpatient (RCR) | payer MEDICAID, SELFPAY ==
--- NOTE | 2022-06-07 17:05 | HP.PT.NRP ---
DAVY SINGLETON was seen in my office for initial evaluation on . The following Plan of Care was established for this patient: This patient was last seen in our office . Pertinent comments regarding their Physical therapy will appear below: Pt was treated for 30 PT visits for L knee pain through the date of 02/15/22. Pt has not returned through todays date and is discontinued at this time. At this point I will be discontinuing this patient from physical therapy. I would be happy to see this patient again in the future if found appropriate by the physician. Thank you! Santiago Rodríguez, PT, ATC
== END 2022-02-15 19:00 | disposition home or self-care (01) ==
LOC: PT 16:00
PROVIDERS: PCP Family Medicine; Referring Provider Family Medicine; Visit Provider Family Medicine
DX: M25.562 Pain in left knee (principal)
CPT/HCPCS: 97110

== ENCOUNTER 2022-06-25 14:45 | Outpatient (RCR) | payer MEDICAID, SELFPAY ==
--- NOTE | 2022-06-27 12:15 | HP.PTEVAL_ITS ---
Patient's Visit Information DAVY SINGLETON is a 31 year old M referred to Physical Therapy by Dr. Ar Zamudio DO with a diagnosis of L knee pain. Date of Evaluation: 06/25/22 Physical Therapist: Alec Jackson DPT - Visit Plan Frequency: 2x /Week Duration: 6 Weeks Plan: Start with BLE strengthening/core strengthening. Progress functional strength on stairs and squatting as well. - Subjective Pt. is here today for his initial evaluation with diagnosis of L knee pain. Pt. a few year ago had a plateau fracture of his L knee. Pt. had an ORIF on his knee at that point in time. Pt. reports overall he is doing better, but is having some issues with his strength. He reports having intermittent pain with stairs and prolonged walking, but mostly feels like his leg is not strong enough. He is sleeping well without issues. Pt. reports no pain currently. Pt. has not been doing some of his HEP that he was given last year. Pt. is hopeful to increase in strength to tolerate walking his dog, going up and down his stairs better and do all of his home chores without limitations. - Pain L knee Pain Intensity (Out of 10): 0 Pain Intensity Range: 0, 3 - Balance/Special Test Scores Lower Extremity Functional Score: 60 - Goals Goal 1:: LTG: Pt. to be I with HEP. 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 Goal Time Frame: 4-6 Weeks Goal 3:: LTG: Pt. to have increased LLE strength to 5/5 throughout without increase in symptoms. Goal 4:: LTG: pt. to be able to negotiate 1 flight of stairs with out HR allowing his to carry out trash at home. Goal Time Frame: 4-6 Weeks - Rehabilitation Potential Rehabilitation Potential: Good - Anticipated Interventions Patient/Client Instruction: Educate patient on: Condition, Plan of Care, Risk Factors, Benefits of Fitness Program For the Purpose of:: To facilitate caregiver knowledge, To improve self management, To prevent re-injury, To improve ability to perform tasks related to life management, To improve tolerance to ADL's Therapeutic Exercise to Include: Strength training, Power training, Endurance training, Balance training, Postural training, Flexibilty training, Gait and locomotor training For the Purpose of:: To decrease pain, To improve nutrient delivery to tissue, To increase oxygenation perfusion, To improve muscle performance and motor function, To improve ability to perform ADL's Thank you for the opportunity to evaluate your patient. For Medicare and Medicare HMO plans, please review the plan of care and approve it. It will need to be FAXED BACK to us at [phone] for Medicare purposes. For Medicare only, by signing this I certify the plan of care. Please let me know if there are questions or concerns regarding this plan of care. Physician Signature: Date:
--- NOTE | 2022-10-25 11:38 | HP.PT.NRP ---
Patient Information Patient Information: DAVY SINGLETON was seen in my office for initial evaluation on 06/25/22. The following Plan of Care was established for this patient: POC Established Initial Frequency: 2x /Week Initial Duration: 6 Weeks Anticipated Interventions Patient/Client Instruction: Educate patient on: Condition, Plan of Care, Risk Factors and Benefits of Fitness Program For the Purpose of:: To facilitate caregiver knowledge, To improve self management, To prevent re-injury, To improve ability to perform tasks related to life management and To improve tolerance to ADL's Therapeutic Exercise to Include: Strength training, Power training, Endurance training, Balance training, Postural training, Flexibilty training and Gait and locomotor training For the Purpose of:: To decrease pain, To improve nutrient delivery to tissue, To increase oxygenation perfusion, To improve muscle performance and motor function and To improve ability to perform ADL's Last Seen Last Seen: This patient was last seen in our office 06/25/22. Pertinent comments regarding their Physical therapy will appear below: Pt. was evaluated in PT, but has not returned since. Pt. will be DC from PT at this point in time. At this point I will be discontinuing this patient from physical therapy. I would be happy to see this patient again in the future if found appropriate by the physician. Thank you! Alec Jackson, DPT Balance/Gait/Functional tests Balance/Special Test Scores Lower Extremity Functional Score: 60
== END 2022-06-25 19:00 | disposition home or self-care (01) ==
LOC: PT 14:45
PROVIDERS: PCP Family Medicine; Referring Provider Family Medicine; Visit Provider Family Medicine
DX: M25.562 Pain in left knee (principal)
CPT/HCPCS: 97161

== ENCOUNTER → 2022-12-11 | Outpatient (CLI) | payer MEDICAID, SELFPAY ==
[2022-12-11 17:37] LABS: Absolute Lymphocyte Count 1.97 X10^3/uL (0.83-4.51); Absolute Neutrophil Count 7.1 X10^3/uL (2.0-7.7); Basophil# 0.09 X10^3/uL; Basophil% 0.9 % (0-1); Eosinophil# 0.22 X10^3/uL; Eosinophils% 2.1 % (0-5); Hematocrit 45.9 % (40-54); Lymphocyte # 1.97 X10^3/ul (0.83-4.51); Lymphocyte % 18.7 % (19-41); Mean Corp Hgb Conc 32.7 g/dL (32-36); Mean Corpuscular Hgb 30.9 pg (27.0-32.0); Mean Corpuscular Volume 94.6 fL (80-94); Mean Platelet Vol. 11.3 fl (6.2-12.0); Monocyte# 1.03 X10^3/uL; Monocyte% 9.8 % (0-10); NRBC Flagged by Analyzer 0 % (0-5); Neutrophil # 7.12 X10^3/uL (2.7-7.7); Neutrophil % 67.7 % (47-70); Platelet Count 243 K/mm3 (150-450); RBC Distribution Width CV 11.9 % (11.6-14.6); RBC Distribution Width SD 41.5 fl (35.1-43.9); Red Blood Count 4.85 M/mm3 (4.6-6.2); White Blood Count 10.5 K/mm3 (4.4-11.0)
[2022-12-11 18:12] LABS: ALB/GLOB Ratio 1.3 RATIO (0.9-2.4); AST(SGOT) 20 U/L (15-37); Alanine Aminotransfer ALT/SGPT 33 U/L (16-61); Albumin, Serum 4.4 g/dL (3.2-5.0); Alkaline Phosphatase 82 U/L (45-117); Anion Gap 6 (5-15); BUN 18 mg/dL (7-18); BUN/Creat Ratio 16.2 RATIO (10-20); Calcium,Total 9.2 mg/dL (8.5-10.1); Chloride 105 mmol/L (98-107); Cholesterol 123 mg/dL (200); Creatinine, Serum 1.11 mg/dL (0.70-1.30); EST Glomerular Filtration Rate 81 mL/min (>60); Est Glom Filt Rate - Afr Amer 97 mL/min (>60); Globulin 3.5 g/dL (2.2-4.2); Glucose 128 mg/dL (74-106); High Density Lipoprotein 29 mg/dL; Potassium 4.1 mmol/L (3.5-5.1); Protein, Total 7.9 g/dL (6.4-8.2); Sodium Level 140 mmol/L (136-145); Triglycerides 231 mg/dL; Very Low Density Lipoprotein 46 mg/dL (5-40)
== END | disposition home or self-care (01) ==
LOC: BFHLAB 15:15
PROVIDERS: PCP Family Medicine; Visit Provider Family Medicine
DX: Z00.00 Encounter for general adult medical examination without abnormal findings (principal)
CPT/HCPCS: 36415; 80053; 80061; 85025

== ENCOUNTER 2023-08-15 15:00 | Outpatient (RCR) | payer MEDICAID, SELFPAY ==
--- NOTE | 2023-07-08 16:00 | HP.PTEVAL_ITS ---
Patient's Visit Information Visit Information Visit Information: DAVY SINGLETON is a 32 year old M referred to Physical Therapy by Dr. Ar Zamudio DO with a diagnosis of L knee pain and L knee valgus deformity. Date of Evaluation: 07/08/23 Physical Therapist: Alec Jackson DPT Visit Plan Frequency: 2x /Week Duration: 6 Weeks Plan: Start with BLE quad and glute med/max strengthening. Add in HS stretching bilaterally. Progress HEP. Pt. will need handouts to increase carry over. Subjective Subjective: Pt. is here today with diagnosis of L knee pain and L knee valgus deformity. Pt. reports having increased L knee pain for a few years on and off. He did have an fracture of his L leg in the past. He reports no new mech of injury. Pt. reports no pain currently, but has increased pain with working out side. He is sleeping well without N/T in either LE. Pt. is hopeful to get back to recreational walking without issues. Pain L knee: Pain Intensity (Out of 10): 0 Pain Intensity Range: 0 and 4 Objective Objective: POSTURE: Pt. has marked B knee valgus deformity in stance. Pt. stands with B femoral IR and tibial ER positioning. PALPATION: pt. does not have much pain with palpation of either knee. Pt. does have some swelling in his R leg distally, 1+ pitting. Pt. reports this is normal for him. (keep our eyes on this) NEURO: pt. has normal sensation in BLEs and hyper reflexive with DTR of patellar and achilles. ROM: Pt. has tightness in B HS, R knee: 0-0-123deg. L knee: 0-0-121deg. Pt. has good B hip ER/IR motions. MMT: LLE: ankle: DF 21.1#, PF 27.9#; knee: ext 20.4#, flex 25.4#; hip: flexion 26.1#, abd 28.0# RLE: ankle; DF 19.8#, PF 25.2# , knee ext 35.5#, flexion 22.7# ; hip: flexion 31.2#, abd 29.8# GAIT: Pt. ambulates with decreased hip extension, B hip ER and B knee valgus positioning. He has marked pes planus as well. STAIRS: Pt. is able to complete with 1 HR with reciprocal pattern. His increased L knee valgus if more pronounced with descending during L stance phase than R side. Pt. has poor squat mechanics with increased B knee valgus as well as marked B forefoot pronation. Special Tests L Knee Mary - Meniscus: Negative L Knee Apley - Meniscus: Negative L Knee Anterior Drawer - ACL: Negative L Knee Posterior Drawer - PCL: Negative L Knee Posterior Sag - PCL: Negative L Knee Valgus - MCL: Negative L Knee Varus - LCL: Negative L Knee Patellar Apprehension - PFS: Negative Balance/Special Test Scores Lower Extremity Functional Score: 41 Goals Goal 1:: LTG: Pt. to be I with HEP. Goal Time Frame: 4-6 Weeks Goal 2:: LTG: Pt. to have increased L quad and glute strength symmetrical to R side allowing for increased knee stability. Goal Time Frame: 4-6 Weeks Goal 3:: LTG: Pt. to have increased B HS length to greater than 60deg in 90/90 positioning. Goal Time Frame: 4-6 Weeks Goal 4:: LTG: pt. to complete a squat with good mechanics with proper knee positioning. Goal Time Frame: 4-6 Weeks Rehabilitation Potential Physical Therapy Diagnosis: Pt. has signs and symptoms consistent with L knee valgus deformity with subsequent L knee pain. Pt. has marked quad weakness of the L side compared to R side. He has some postural abnormalities, but I would like him to focus on quad and glute strengthening and HS stretching in PT. Rehabilitation Potential: Good Anticipated Interventions Patient/Client Instruction: Educate patient on: Condition, Plan of Care, Risk Factors and Benefits of Fitness Program For the Purpose of:: To improve decision making, To facilitate caregiver knowledge, To improve self management, To prevent re-injury and To improve ability to perform tasks related to life management Therapeutic Exercise to Include: Strength training, Power training, Coordinatio n, Body mechanics and Flexibilty training For the Purpose of:: To decrease pain, To improve nutrient delivery to tissue, To increase oxygenation perfusion, To increase tolerance to activity/condition/position, To improve performance and independence with ADL's, To decrease level of supervision to perform tasks, To improve gait and locomotor functions, To improve health of tissue, To decrease soft tissue restriction, To increase flexibility/ROM and To improve endurance Text: Thank you for the opportunity to evaluate your patient. For Medicare and Medicare HMO plans, please review the plan of care and approve it. It will need to be FAXED BACK to us at [phone] for Medicare purposes. For Medicare only, by signing this I certify the plan of care. Please let me know if there are questions or concerns regarding this plan of care. Physician Signature: ___Date:
== END 2023-08-15 19:00 | disposition home or self-care (01) ==
LOC: PT 15:00
PROVIDERS: PCP Family Medicine; Referring Provider Family Medicine; Visit Provider Family Medicine
DX: M25.562 Pain in left knee (principal); M21.062 Valgus deformity, not elsewhere classified, left knee
CPT/HCPCS: 97110; 97161

== ENCOUNTER → 2023-12-30 | Outpatient (CLI) | payer MEDICAID, SELFPAY ==
[2023-12-30 15:19] LABS: Absolute Neutrophil Count 7.5 X10^3/uL (2.0-7.7); Basophil# 0.08 X10^3/uL; Basophil% 0.7 % (0-1); Eosinophil# 0.31 X10^3/uL; Eosinophils% 2.6 % (0-5); Hematocrit 42.4 % (40-54); Hemoglobin 14.2 g/dL (13.0-16.5); Lymphocyte % 25.3 % (19-41); Mean Corp Hgb Conc 33.5 g/dL (32-36); Mean Corpuscular Hgb 30.8 pg (27.0-32.0); Mean Platelet Vol. 11.1 fl (6.2-12.0); Monocyte# 0.95 X10^3/uL; NRBC Flagged by Analyzer 0 % (0-5); Neutrophil # 7.47 X10^3/uL (2.7-7.7); Platelet Count 262 K/mm3 (150-450); RBC Distribution Width CV 12.1 % (11.6-14.6); RBC Distribution Width SD 40.3 fl (35.1-43.9); Red Blood Count 4.61 M/mm3 (4.6-6.2); White Blood Count 11.9 K/mm3 (4.4-11.0)
[2023-12-30 16:16] LABS: ALB/GLOB Ratio 1.4 RATIO (0.9-2.4); AST(SGOT) 20 U/L (15-37); Alanine Aminotransfer ALT/SGPT 36 U/L (16-61); Albumin, Serum 4.3 g/dL (3.2-5.0); Alkaline Phosphatase 94 U/L (45-117); Anion Gap 6 (5-15); BUN 14 mg/dL (7-18); BUN/Creat Ratio 15.5 RATIO (10-20); Calcium,Total 9.5 mg/dL (8.5-10.1); Chloride 108 mmol/L (98-107); Cholesterol 132 mg/dL (200); EST Glomerular Filtration Rate 102 mL/min (>60); Est Glom Filt Rate - Afr Amer 123 mL/min (>60); Globulin 3.1 g/dL (2.2-4.2); Glucose 101 mg/dL (74-106); High Density Lipoprotein 35 mg/dL; Potassium 3.8 mmol/L (3.5-5.1); Protein, Total 7.4 g/dL (6.4-8.2); Sodium Level 141 mmol/L (136-145); Triglycerides 221 mg/dL; Very Low Density Lipoprotein 44 mg/dL (5-40)
== END | disposition home or self-care (01) ==
LOC: BFHLAB 11:48
PROVIDERS: PCP Family Medicine; Referring Provider Family Medicine; Visit Provider Family Medicine
DX: Z00.00 Encounter for general adult medical examination without abnormal findings (principal)
CPT/HCPCS: 80053; 80061; 85025

== ENCOUNTER 2024-05-05 15:00 | Outpatient (RCR) | payer MEDICAID, SELFPAY ==
--- NOTE | 2024-04-07 16:28 | HP.PTEVAL ---
Patient's Visit Information Visit Information Visit Information: DAVY SINGLETON is a 33 year old M referred to Physical Therapy by Dr. Ar Zamudio DO with a diagnosis of L knee pain. Date of Evaluation: 04/07/24 Physical Therapist: Santiago Rodríguez, PT, ATC Visit Plan Frequency: 2x /Week Duration: 4-6 Weeks Plan: L quad strengthening, balance and proprio, core strengthening ex's, nustep, and HEP Subjective Subjective: Pt reports his L knee has been sore, on and off, for the past couple weeks. Pt notes he fractured his L tibia close to his knee 2 years ago. Pt notes he continues to feel this pain every time the weather changes. Pt reports he has stairs at home that he has to negotiate on a daily basis. Pt notes he has to negotiate his stairs slowly, and one step at a time. Pt reports he has fallen multiple times over the last several months duel to unsteady gait. Pt reports he is usually walking his dog, or simply trips over the dog when he as fallen in the past. Pt reports his feet go numb on occasion, which makes feeling his feet hit the ground very difficult. Pt notes sleep difficulty at this time secondary to pain. 3/10 pain while sitting here at rest, 10/'10 pain at worst (sometimes when walking his dog). Pt has had no recent DX tests Pain L knee: Pain Intensity (Out of 10): 3 Pain Intensity Range: 10 Objective Objective: TU.77 seconds Neuro: B LE sensation is WNL to light touch Palpation: Pt is mostly sore throughout inferior patellar tendon. No deformity noted at this time. ROM: L knee 0-115 degrees ; R knee 0-130 degrees MMT: L knee flex= 13, ext= 36; R knee flex= 19, ext= 36 #F FGA: 22/30- Pt is a risk for falling at this time. Balance/Special Test Scores Functional Gait Assessment Score: 22 % Disability: 26.6700 Lower Extremity Functional Score: 53 Goals Goal 1:: Decrease L knee pain x 50% to aid with sleep Goal Time Frame: 4-6 Weeks Goal 2:: Increase FGA score x 3-5 points to aid with preventing future falls Goal Time Frame: 4-6 Weeks Goal 3:: Pt will perform the TUG test in under 8 sec to aid with community ambulation Goal Time Frame: 4-6 Weeks Goal 4:: I with HEP Goal Time Frame: 4-6 Weeks Rehabilitation Potential Physical Therapy Diagnosis: Pt has L knee pain, weakness, and difficulty with sleep secondary to L knee patellar tendon pathology Rehabilitation Potential: Good Anticipated Interventions Patient/Client Instruction: Educate patient on: Condition and Plan of Care For the Purpose of:: To improve self management Therapeutic Exercise to Include: Strength training, Endurance training, Balance training, Flexibilty training, Active ROM and Dynamic Lumbar Stabilization For the Purpose of:: To decrease pain, To increase ROM and To improve muscle performance and motor function Cryotherapy (ice pack, ice massage): Yes For the Purpose of:: To decrease pain Text: Thank you for the opportunity to evaluate your patient. For Medicare and Medicare HMO plans, please review the plan of care and approve it. It will need to be FAXED BACK to us at [phone] for Medicare purposes. For Medicare only, by signing this I certify the plan of care. Please let me know if there are questions or concerns regarding this plan of care. Physician Signature: Date:
--- NOTE | 2024-05-05 16:04 | HP.PTDCSUM ---
Discharge Summary D/C summary: It has been my pleasure to treat DAVY SINGLETON referred by Dr. Ar Zamudio DO, with the diagnosis of L knee pain for a total of 9 visit(s). Discharge Date: Please see the following information for a summary of their discharge status. Subjective Subjective: I feel good in my L knee today. I twisted my R ankle yesterday and it is sore Pain L knee: Pain Intensity (Out of 10): 0 Overall Improvement % Improvement: 90 Objective Objective/Function: L knee pain is 0/10 Pt is I with HEP TUG= 9 sec FGA= 26/30 Goals Goal 1:: Decrease L knee pain x 50% to aid with sleep Goal Progress: Goal Met Goal 2:: Increase FGA score x 3-5 points to aid with preventing future falls Goal Progress: Goal Met Goal 3:: Pt will perform the TUG test in under 8 sec to aid with community ambulation Goal Progress: Progressing Goal 4:: I with HEP Goal Progress: Goal Met Plan Plan: Discharge to HEP D/C Information d/c sentence: If there are questions or concerns regarding this patient's physical therapy, please feel free to call me at [phone]. Thank you for the referral of this patient. Sincerely, Santiago Rodríguez, PT, ATC Balance/Gait/Functional tests Balance/Special Test Scores Functional Gait Assessment Score: 26 % Disability: 13.3400 Lower Extremity Functional Score: 53 Improvement % Improvement: 90
== END 2024-05-05 19:00 | disposition home or self-care (01) ==
LOC: PT 15:00
PROVIDERS: PCP Family Medicine; Referring Provider Family Medicine; Visit Provider Family Medicine
DX: M25.562 Pain in left knee (principal)
CPT/HCPCS: 97110; 97161; 97530